=== PATIENT | female | born 1965 | race Caucasian/White ===

== ENCOUNTER → 2016-09-08 | Outpatient (CLI) | payer BC, OTHER ==
[~2016-09-08] MED LIST: ACET1TAB84 PO; ANT25 PO; ASPI81TA21 PO; CHOL1000 PO; CLR10 PO; FAMO20TA11 PO; FLUT0.15 NAE; LEVO175T PO; LEVO200T32 PO; MULT-513 PO; PRLSR20 PO; TRIA37.53 PO; TRIA75TA53 PO
[2016-09-09 06:22] LABS: ESTIMATED AVERAGE GLUCOSE 131 mg/dl; HA1C FLAG Normal (Normal)
== END | disposition home or self-care (01) ==
LOC: C.LABPVFM 07:58
PROVIDERS: ATTEND Nurse Practitioner
DX: R53.83 Other fatigue (principal); M76.60 Achilles tendinitis, unspecified leg; Z13.1 Encounter for screening for diabetes mellitus

== ENCOUNTER → 2016-10-21 | Outpatient (CLI) | payer BC ==
[2016-10-21 13:40] LABS: BLOOD UREA NITROGEN 21 mg/dl (7-18); BUN/CREATININE RATIO 23.1 (10-20); CALCIUM 9.6 mg/dl (8.5-10.1); CARBON DIOXIDE 28 mmol/L (21-32); CHLORIDE 102 mmol/L (98-107); CHOLESTEROL 202 mg/dl (0-200); CREATININE 0.89 mg/dl (0.60-1.20); GLUCOSE 114 mg/dl (70-99); POTASSIUM 3.7 mmol/L (3.5-5.1); SODIUM 138 mmol/L (136-145)
[2016-10-21 13:50] LABS: CHOLESTEROL/HDL RATIO 3.2; HDL CHOLESTEROL 64 mg/dl; LDL CHOLESTEROL CALCULATED 122 mg/dl; THYROID STIMULATING HORMONE 0.657 uIu/ml (0.300-4.500); TRIGLYCERIDES 79 mg/dl (0-150); VERY LOW DENSITY LIPOPROT CALC 16 mg/dl
== END | disposition home or self-care (01) ==
LOC: C.LABPVFM 08:06
PROVIDERS: ATTEND Nurse Practitioner
DX: E78.5 Hyperlipidemia, unspecified (principal); I10 Essential (primary) hypertension; E03.9 Hypothyroidism, unspecified

== ENCOUNTER 2017-01-21 15:25 | Inpatient (IN) | payer BC ==
[~2017-01-21] VITALS: Ht 167.6 cm; Wt 124.2 kg
[~2017-01-21 15:25] MED LIST changes: -ACET1TAB84 PO; -ANT25 PO; -CHOL1000 PO; -CLR10 PO; -FAMO20TA11 PO; -FLUT0.15 NAE; -LEVO175T PO; -MULT-513 PO; -PRLSR20 PO; -TRIA37.53 PO
[2017-01-21] MEDS ORDERED: SODIUM CHLORIDE 0.9% 1000ML 2,000 ML IV STA (15:35)
[2017-01-21] MEDS ORDERED: MECLIZINE HCL 25 MG TAB PO STA (15:35)
[2017-01-21] MEDS ORDERED: ONDANSETRON INJ 2 MG/ML 2 ML VIAL IV STA (15:35)
[2017-01-21 15:41] LABS: BASO % 0.4 %; BASO ABS # 0.03 K/uL (0-0.2); COMPLETE YES; EOS % 2.7 %; HEMATOCRIT 36.6 % (37-47); IG% 0.1 %; LYMPH % 35.2 %; LYMPH ABS # 2.71 K/uL (1.2-3.4); MEAN CELL VOLUME 85.1 fL (80-100); MEAN CORPUSCULAR HEMOGLOBIN 28.4 pg (25-34); MEAN CORPUSCULAR HGB CONC 33.3 g/dl (32-36); MEAN PLATELET VOLUME 10.5 fL (7.4-10.4); MONO % 9.4 %; NEUT % 52.2 %; PLATELET COUNT 274 K/uL (130-400)
[2017-01-21] MEDS ORDERED: DIAZEPAM INJ 5 MG/ML 2 ML CARP IV ONE ×2 (15:45→18:00)
[2017-01-21 16:12] LABS: CALCIUM 9.2 mg/dl (8.5-10.1); POTASSIUM 2.6 mmol/L (3.5-5.1)
[2017-01-21] MEDS ORDERED: CHOL1000 PO (16:20)
[2017-01-21] MEDS ORDERED: TRIA37.53 PO (16:20)
[2017-01-21] MEDS ORDERED: PRLSR20 PO (16:20)
[2017-01-21] MEDS ORDERED: CLR10 PO (16:20)
[2017-01-21] MEDS ORDERED: FLUT0.15 NAE (16:20)
[2017-01-21] MEDS ORDERED: LEVO175T PO (16:20)
[2017-01-21] MEDS ORDERED: FAMO20TA11 PO (16:20)
[2017-01-21] MEDS ORDERED: MULT-513 PO (16:20)
[2017-01-21] MEDS ORDERED: ACET1TAB84 PO (16:24)
[2017-01-21] MEDS ORDERED: POTASSIUM CHLORIDE 10 MEQ TABCR PO STA (16:30)
[2017-01-21] MEDS ORDERED: POTASSIUM CHLORIDE 10 MEQ / 100ML WTR IV STA ×2 (17:16→18:04)
--- NOTE | 2017-01-21 17:40 | DIAGNOSTIC IMAGING REPORT ---
HEAD CT NONCONTRAST CT DOSE: 724.83 mGy.cm HISTORY: Mental status change dizzy TECHNIQUE: Multiaxial CT images of the head were performed without the use of intravenous contrast. Comparison: None. Findings: The paranasal sinuses and mastoid air cells are clear. The calvarium and skull base are intact. The ventricles and sulci are within normal limits. There is no mass, hematoma, midline shift, or acute infarct. Impression: No acute intracranial abnormality. Electronically signed by: Ramses Koo M.D. 01/21/2017 5:38 PM Dictated Date/Time: 01/21/2017 5:37 PM
--- NOTE | 2017-01-21 18:32 | EMERGENCY ROOM VISIT NOTE ---
History Report prepared by Alli: Chrissy Ruiz Under the Supervision of: Dr. Sohan Noriega D.O. First contact with patient: 15:27 Chief Complaint: GI ASSESSMENT Stated Complaint: ABD PAIN/ DIZZY History of Present Illness The patient is a 51 year old female who presents to the Emergency Room with complaints of constant dizziness beginning 3 hours ago. The patient states that she was at [employer] today and walked a few laps before stopping because she was woozy. She reports that when she got home she suddenly began to feel dizzy and weak. She notes that the room feels like it is spinning even while she is still but the dizziness is significantly worsened when she moves her head. The patient states that she feels like she is going to pass out. She complains of nausea and vomiting. She denies any recent head trauma, headache, ringing in ears, decreased hearing, chest pain, shortness of breath, abdominal pain, urinary symptoms, numbness, new medication. She believes that her vomiting is secondary to the dizziness. Source of History: patient Onset: 3 hours ago Position: other (global) Quality: other (dizziness) Timing: constant Modifying Factors (Worsening): other (moving head) Associated Symptoms: + nausea, + vomiting, + weakness, No headache, No chest pain, No SOB, No abdominal pain, No urinary symptoms, No numbness Note: She denies any ringing in ears, decreased hearing. Review of Systems See HPI for pertinent positives & negatives. A total of 10 systems reviewed and were otherwise negative. Past Medical & Surgical Medical Problems: (1) Hyperlipidemia Nec/Nos (2) Hypertension Nos (3) Pyelonephritis Nos (4) Tietze's Disease Family History Cancer Diabetes mellitus Heart disease Hypertension Kidney stones Social History Smoking Status: Never Smoker Alcohol Use: none Marital Status: Housing Status: lives with significant other Occupation Status: employed Current/Historical Medications Scheduled Cholecalciferol (Vitamin D3), 4 TAB PO DAILY Levothyroxine Sodium (Synthroid), 175 MCG PO DAILY Loratadine (Claritin), 10 MG PO DAILY Multivitamins/Minerals (Mvi With Minerals), 1 TAB PO DAILY Triamterene & Hydrochlorothiaz (Hctz/Triamterene), 1 TAB PO DAILY Scheduled PRN Acetaminophen (Tylenol Arthritis Ext Rel), 1,300 MG PO Q8H PRN for Pain Famotidine (Pepcid), 20 MG PO DAILY PRN for PT Fluticasone Propionate (Nasal) (Flonase Allergy Relief), 1 SPRAY FELIPA BID PRN for Nasal Congestion Omeprazole (Prilosec), 20 MG PO DAILY PRN for acid reflux Allergies Coded Allergies: Ampicillin (Verified Allergy, Severe, ANAPHYLAXIS, 09/02/11) Physical Exam Vital Signs Date Time Temp Pulse Resp B/P (MAP) Pulse Ox O2 Delivery O2 Flow Rate FiO2 01/21/17 17:04 73 16 131/71 97 Room Air 01/21/17 15:35 36.4 84 18 181/80 93 Room Air Physical Exam GENERAL: sitting up in bed, disheveled, alert, well appearing, well nourished, no distress, non-toxic, eyes are closed EYE EXAM: normal conjunctiva, horizontal nystagmus present OROPHARYNX: no exudate, no erythema, lips, buccal mucosa, and tongue normal and mucous membranes are moist NECK: supple, no nuchal rigidity, no adenopathy, non-tender LUNGS: Clear to auscultation. Normal chest wall mechanics HEART: no murmurs, S1 normal and S2 normal ABDOMEN: abdomen soft, non-tender, normo-active bowel sounds, no masses, no rebound or guarding. BACK: Back is symmetrical on inspection and there is no deformity, no midline tenderness, no CVA tenderness. SKIN: no rashes and no bruising UPPER EXTREMITIES: upper extremities are grossly normal. LOWER EXTREMITIES: No pitting edema. NEURO EXAM: Normal sensorium, cranial nerves II-XII intact, normal speech, no weakness of arms, no weakness of legs. No drift. Finger to nose intact. Gross sensation intact. Rapid alternating movements of upper extremities intact. Medical Decision & Procedures ER Provider Diagnostic Interpretation: Radiology results as stated below per my review and the radiologist's interpretation: HEAD CT NONCONTRAST Findings: The paranasal sinuses and mastoid air cells are clear. The calvarium and skull base are intact. The ventricles and sulci are within normal limits. There is no mass, hematoma, midline shift, or acute infarct. Impression: No acute intracranial abnormality. Electronically signed by: Ramses Koo M.D. 01/21/2017 5:38 PM Dictated Date/Time: 01/21/2017 5:37 PM Laboratory Results 01/21/17 15:00 Red Blood Count 4.30, Mean Corpuscular Volume 85.1, Mean Corpuscular Hemoglobin 28.4, Mean Corpuscular Hemoglobin Concent 33.3, Mean Platelet Volume 10.5, Neutrophils (%) (Auto) 52.2, Lymphocytes (%) (Auto) 35.2, Monocytes (%) (Auto) 9.4, Eosinophils (%) (Auto) 2.7, Basophils (%) (Auto) 0.4, Neutrophils # (Auto) 4.02, Lymphocytes # (Auto) 2.71, Monocytes # (Auto) 0.72, Eosinophils # (Auto) 0.21, Basophils # (Auto) 0.03 01/21/17 15:00 Test 01/21/17 15:00 White Blood Count 7.70 K/uL (4.8-10.8) Red Blood Count 4.30 M/uL (4.2-5.4) Hemoglobin 12.2 g/dL (12.0-16.0) Hematocrit 36.6 % (37-47) Mean Corpuscular Volume 85.1 fL (80-100) Mean Corpuscular Hemoglobin 28.4 pg (25-34) Mean Corpuscular Hemoglobin Concent 33.3 g/dl (32-36) Platelet Count 274 K/uL (130-400) Mean Platelet Volume 10.5 fL (7.4-10.4) Neutrophils (%) (Auto) 52.2 % Lymphocytes (%) (Auto) 35.2 % Monocytes (%) (Auto) 9.4 % Eosinophils (%) (Auto) 2.7 % Basophils (%) (Auto) 0.4 % Neutrophils # (Auto) 4.02 K/uL (1.4-6.5) Lymphocytes # (Auto) 2.71 K/uL (1.2-3.4) Monocytes # (Auto) 0.72 K/uL (0.11-0.59) Eosinophils # (Auto) 0.21 K/uL (0-0.5) Basophils # (Auto) 0.03 K/uL (0-0.2) RDW Standard Deviation 45.9 fL (36.4-46.3) RDW Coefficient of Variation 14.9 % (11.5-14.5) Immature Granulocyte % (Auto) 0.1 % Immature Granulocyte # (Auto) 0.01 K/uL (0.00-0.02) Anion Gap 13.0 mmol/L (3-11) Est Creatinine Clear Calc Drug Dose 88.9 ml/min Estimated GFR () 75.0 Estimated GFR (Non- 64.7 BUN/Creatinine Ratio 17.0 (10-20) Calcium Level 9.2 mg/dl (8.5-10.1) Total Bilirubin 0.6 mg/dl (0.2-1) Direct Bilirubin 0.2 mg/dl (0-0.2) Aspartate Amino Transf (AST/SGOT) 43 U/L (15-37) Alanine Aminotransferase (ALT/SGPT) 51 U/L (12-78) Alkaline Phosphatase 70 U/L (45-117) Total Protein 7.7 gm/dl (6.4-8.2) Albumin 3.9 gm/dl (3.4-5.0) Lipase 134 U/L (73-393) Laboratory results per my review. Medications Administered Medications (Trade) Dose Ordered Sig/Kit Route Start Time Stop Time Status Last Admin Dose Admin Sodium Chloride 2,000 ml @ 999 mls/hr Q2H1M STAT IV 01/21/17 15:35 01/21/17 17:35 DC 01/21/17 15:53 999 MLS/HR Diazepam (Valium Inj) 2.5 mg NOW ONCE IV 01/21/17 15:45 01/21/17 15:46 DC 01/21/17 15:53 2.5 MG Meclizine HCl (Antivert Tab) 25 mg NOW STAT PO 01/21/17 15:35 01/21/17 15:37 DC 01/21/17 15:54 25 MG Ondansetron HCl (Zofran Inj) 4 mg NOW STAT IV 01/21/17 15:35 01/21/17 15:37 DC 01/21/17 15:54 4 MG Potassium Chloride (Kcl 10 Meq / Wtr) 10 meq NOW STAT IV 01/21/17 17:16 01/21/17 17:17 DC 01/21/17 17:39 10 MEQ Diazepam (Valium Inj) 2.5 mg NOW ONCE IV 01/21/17 18:00 01/21/17 18:01 DC 01/21/17 18:07 2.5 MG ED Course ED COURSE: Vital signs were reviewed and showed hypertension The patients medical record was reviewed The above diagnostic studies were performed and reviewed. ED treatments and interventions as stated above. 1527: The patient was evaluated in room C10. A complete history and physical examination was performed. 1535: Zofran Inj 4mg IV, Antivert Tab 25mg PO, Sodium Chloride 2000 ml @ 999 mls /hr IV. 1545: Valium Inj 2.5mg IV. 1605: I reevaluated the patient. She is sleepy and was just medicated. She does not think her dizziness has gotten any better. 1630: Potassium Chloride 40meq PO. 1716: Potassium Chloride 10meq PO. 1800: Valium Inj 2.5mg IV. 1804: Potassium Chloride 10meq IV. 1812: I reviewed the patient's case with Dr. De La Garza. She will evaluate the patient for further management. 1827: Upon reevaluation, the patient is doing well.I discussed my findings with the patient and she understands and agrees with the treatment plan. Based on the patients age, coexisting illnesses, exam and lab findings the decision to treat as an inpatient was made. The patient remained stable while under my care. The patient will be evaluated for further management. Medical Decision Differential diagnosis includes etiologies such as benign positional vertigo, dehydration, hypovolemia, anemia, tumor, infection, hypoglycemia, electrolyte abnormalities, cardiac sources, intracerebral event, toxicologic, neurologic, as well as others were entertained. Medication Reconciliation: I attest that I have personally reviewed the patient' s current medication list. Blood pressure screening: Patient was found to have an elevated blood pressure and was referred to their primary doctor for recheck and further treatment. Patient is a 51-year-old female who presents the ER for sudden onset of vertiginous symptoms. Associated with this is nausea and vomiting. She has no chest pain or shortness breath. No weakness or numbness in arms or legs. She is completely neurologically intact. She did have nystagmus on exam initially. CT head was negative. Patient was given 2 doses of Valium and Antivert. She had improvement but still unable to get up without vomiting. She did vomit on the way back from CAT scan. Labs are remarkable for a potassium of 2.6 which I favor is secondary to her vomiting. She was given IV potassium 10 mg 2. I discussed her case with internal medicine as she was unable to get up and ambulate for observation. I do feel this is most consistent with peripheral vertigo. Consults Time Called: 1809 Consulting Physician: Dr. De La Garza - [facility] [place] Returned Call: 1811 I reviewed the patient's case with Dr. De La Garza. She will evaluate the patient for further management. Impression Primary Impression: Vertigo Additional Impression: Hypokalemia Scribe Attestation The scribe's documentation has been prepared under my direction and personally reviewed by me in its entirety. I confirm that the note above accurately reflects all work, treatment, procedures, and medical decision making performed by me. Departure Information Dispostion Being Evaluated By Hospitalist Referrals Tamiko Duarte, Shari.R.N.P (PCP) Patient Instructions My [facility] Problem Qualifiers
[2017-01-21] MEDS ORDERED: MECLIZINE HCL 12.5 MG TAB PO PRN (19:15)
[2017-01-21] MEDS ORDERED: FAMOTIDINE 20 MG TAB PO PRN (19:15)
[2017-01-21] MEDS ORDERED: PANTOprazole SOD 40 MG TAB PO PRN (19:15)
[2017-01-21] MEDS ORDERED: ONDANSETRON INJ 2 MG/ML 2 ML VIAL IV PRN (19:15)
[2017-01-21] MEDS ORDERED: ACETAMINOPHEN 325 MG TAB PO PRN (19:15)
[2017-01-21] MEDS ORDERED: FLUTICASONE PROPIONATE NA SPR 16 GM BTL NAE PRN (19:15)
[2017-01-21] MEDS ORDERED: ACETAMINOPHEN 500 MG TAB PO PRN (19:15)
[2017-01-21] MEDS ORDERED: MAGNESIUM HYDROXIDE SUSP 30 ML UDC PO PRN (19:15)
--- NOTE | 2017-01-21 19:18 | History and Physical ---
History & Physical Date & Time of Service: Jan 21, 2017 at 19:10 Chief Complaint: Abd Pain/ Dizzy Primary Care Physician: Tamiko Duarte C.R.N.P History of Present Illness Source: patient 51 y/o F c/o dizziness. Pt states that she was at [employer] today when this started. She had felt fine most of the morning, although at one point she noted feeling a bit dizzy when she was sitting in the bleachers. She went back out to walk a few more laps and had sudden onset of room spinning sensation that would not resolve. This happened around 12:30p. She states she was nauseated and had 6-7 episodes of emesis [employer]. ED physician states that pt has had emesis with any attempts at movement and with PO K. Also reports that pt had nystagmus on arrival, but this has resolved. Pt states she is feeling a bit improved now s/p valium and antivert, but still with room spinning with any movement. She did not pass out "but I thought I was going to". No prior hx of vertigo. She states that she also participated in the [employer] over the weekend and that she was outside a lot with these activities. Pt denies fever, SOB, chest pain, abd pain, c/d, LE pain or swelling. Past Medical/Surgical History HTN Hypothyroid Family History Family history was reviewed; no changes noted. Father with hx of vertigo Social History Smoking Status: Never Smoker Alcohol Use: none Drug Use: none Marital Status: Housing status: lives with family Occupational Status: employed Immunizations History of Influenza Vaccine: Yes Influenza Vaccine Date: Jun 02, 2010 History of Tetanus Vaccine?: No History of Pneumococcal: No History of Hepatitis B Vaccine: Yes Multi-Drug Resistant Organisms History of MDRO: No Allergies Coded Allergies: Ampicillin (Verified Allergy, Severe, ANAPHYLAXIS, 09/02/11) Home Medications Scheduled Cholecalciferol (Vitamin D3), 4 TAB PO DAILY Levothyroxine Sodium (Synthroid), 175 MCG PO DAILY Loratadine (Claritin), 10 MG PO DAILY Multivitamins/Minerals (Mvi With Minerals), 1 TAB PO DAILY Triamterene & Hydrochlorothiaz (Hctz/Triamterene), 1 TAB PO DAILY Scheduled PRN Acetaminophen (Tylenol Arthritis Ext Rel), 1,300 MG PO Q8H PRN for Pain Famotidine (Pepcid), 20 MG PO DAILY PRN for PT Fluticasone Propionate (Nasal) (Flonase Allergy Relief), 1 SPRAY FELIPA BID PRN for Nasal Congestion Omeprazole (Prilosec), 20 MG PO DAILY PRN for acid reflux Review of Systems Reviewed and negative Physical Exam Vital Signs Date Time Temp Pulse Resp B/P (MAP) Pulse Ox O2 Delivery O2 Flow Rate FiO2 01/21/17 18:35 68 18 130/74 92 Room Air 01/21/17 17:04 73 16 131/71 97 Room Air 01/21/17 15:35 36.4 84 18 181/80 93 Room Air General Appearance: WD/WN, no apparent distress Head: normocephalic, atraumatic Eyes: normal inspection, sclerae normal ENT: hearing grossly normal Neck: supple Respiratory/Chest: normal breath sounds, no respiratory distress Cardiovascular: regular rate, rhythm, no edema Abdomen/GI: non tender, soft Extremities/Musculoskelatal: no calf tenderness, no pedal edema Neurologic/Psych: alert, normal mood/affect, oriented x 3 Skin: normal color, warm/dry Diagnostics Laboratory Results Results Past 24 Hours Test 01/21/17 15:00 Range/Units White Blood Count 7.70 4.8-10.8 K/uL Red Blood Count 4.30 4.2-5.4 M/uL Hemoglobin 12.2 12.0-16.0 g/dL Hematocrit 36.6 37-47 % Mean Corpuscular Volume 85.1 80-100 fL Mean Corpuscular Hemoglobin 28.4 25-34 pg Mean Corpuscular Hemoglobin Concent 33.3 32-36 g/dl Platelet Count 274 130-400 K/uL Mean Platelet Volume 10.5 7.4-10.4 fL Neutrophils (%) (Auto) 52.2 % Lymphocytes (%) (Auto) 35.2 % Monocytes (%) (Auto) 9.4 % Eosinophils (%) (Auto) 2.7 % Basophils (%) (Auto) 0.4 % Neutrophils # (Auto) 4.02 1.4-6.5 K/uL Lymphocytes # (Auto) 2.71 1.2-3.4 K/uL Monocytes # (Auto) 0.72 0.11-0.59 K/uL Eosinophils # (Auto) 0.21 0-0.5 K/uL Basophils # (Auto) 0.03 0-0.2 K/uL RDW Standard Deviation 45.9 36.4-46.3 fL RDW Coefficient of Variation 14.9 11.5-14.5 % Immature Granulocyte % (Auto) 0.1 % Immature Granulocyte # (Auto) 0.01 0.00-0.02 K/uL Sodium Level 142 136-145 mmol/L Potassium Level 2.6 3.5-5.1 mmol/L Chloride Level 104 98-107 mmol/L Carbon Dioxide Level 25 21-32 mmol/L Anion Gap 13.0 3-11 mmol/L Blood Urea Nitrogen 17 7-18 mg/dl Creatinine 1.00 0.60-1.20 mg/dl Est Creatinine Clear Calc Drug Dose 88.9 ml/min Estimated GFR () 75.0 Estimated GFR (Non- 64.7 BUN/Creatinine Ratio 17.0 10-20 Random Glucose 141 70-99 mg/dl Calcium Level 9.2 8.5-10.1 mg/dl Total Bilirubin 0.6 0.2-1 mg/dl Direct Bilirubin 0.2 0-0.2 mg/dl Aspartate Amino Transf (AST/SGOT) 43 15-37 U/L Alanine Aminotransferase (ALT/SGPT) 51 12-78 U/L Alkaline Phosphatase 70 45-117 U/L Total Protein 7.7 6.4-8.2 gm/dl Albumin 3.9 3.4-5.0 gm/dl Lipase 134 73-393 U/L Diagnostic Radiology CT head neg for acute Impression Assessment and Plan 51 y/o F who was admitted on 01/21 with intractable vertigo Vertigo: no prior hx, likely related to hypoK TSH pending CT head neg for acute Improved with valium and antivert PT pending if ongoing sx, should also instruct pt on home maneuvers in case of future events Can hold off on cardiac work-up since this is likely vertigo given improvement with meds Hypothyroid: recent adjustments to synthroid TSH pending HTN: labile on arrival in the setting of vertigo, improved with improving sx Continue home meds Clears, ADAT Level of Care Telemetry VTE Prophylaxis VTE Risk Assessment Done? Y/N: Yes Risk Level: Low
[2017-01-21] MEDS: SODIUM CHLORIDE 0.9% 1000ML 1,000 ML IV SCH (20:29)
[2017-01-21 21:04] VITALS: BP 164/80; PULSE 69; TEMP 36.8; O2SAT 92; Ht 167.6 cm; Wt 124.2 kg
[2017-01-22 00:03] VITALS: BP 120/70; PULSE 71; TEMP 36.6; O2SAT 96
[2017-01-22 04:00] VITALS: BP 146/79; PULSE 67; TEMP 36.8; O2SAT 94
[2017-01-22] MEDS ORDERED: LEVOTHYROXINE 175 MCG TAB PO SCH (06:30)
[2017-01-22 06:40] LABS: BUN/CREATININE RATIO 13.6 (10-20); CALCIUM 8.5 mg/dl (8.5-10.1); CREATININE 0.77 mg/dl (0.60-1.20); POTASSIUM 3.2 mmol/L (3.5-5.1)
[2017-01-22 06:43] LABS: THYROID STIMULATING HORMONE 0.516 uIu/ml (0.300-4.500)
[2017-01-22 07:09] VITALS: BP 118/75; PULSE 56; TEMP 36.8; O2SAT 95
[2017-01-22] MEDS ORDERED: POTASSIUM CHLORIDE 10 MEQ TABCR PO ONE ×2 (07:45→14:15)
[2017-01-22] MEDS: SODIUM CHLORIDE 0.9% 1000ML 1,000 ML IV SCH (08:22)
[2017-01-22] MEDS ORDERED: CHOLECALCIFEROL 1000 INTER.UNIT TAB PO SCH (09:00)
[2017-01-22] MEDS ORDERED: TRIAMTERENE/HCTZ 37.5/25MG TAB PO SCH (09:00)
[2017-01-22] MEDS ORDERED: LORATADINE 10 MG TAB PO SCH (09:00)
[2017-01-22] MEDS ORDERED: CEROVITE ADV FORMULA TAB PO SCH (09:00)
[2017-01-22 11:49] VITALS: BP 127/73; PULSE 54; TEMP 36.8; O2SAT 95
--- NOTE | 2017-01-22 11:51 | DIAGNOSTIC IMAGING REPORT ---
CHEST ONE VIEW PORTABLE CLINICAL HISTORY: Shortness of breath and chest pain. COMPARISON STUDY: Chest radiograph September 29, [address] September 30, 2010. FINDINGS: Lung volumes are diminished. There is no pneumothorax or pleural effusion. Mild cardiomegaly is unchanged. There is no evidence of pulmonary edema. There is right paratracheal fullness which could be related to patient rotation. Hazy left basilar opacity is present. IMPRESSION: 1. Hazy left basilar opacity. Atelectasis or artifact is favored although consolidation could appear similar. 2. Right paratracheal fullness which is likely related to patient rotation. Follow-up nonemergent PA and lateral chest radiographs are recommended to exclude the less likely possibility of adenopathy/mass. Electronically signed by: Eusebio Aguilar M.D. 01/22/2017 11:49 AM Dictated Date/Time: 01/22/2017 11:47 AM
[2017-01-22] MEDS ORDERED: ANT25 PO (13:38)
--- NOTE | 2017-01-22 13:43 | Discharge Instructions ---
Discharge Instructions Date of Service Jan 22, 2017. Admission Reason for Admission: Vertigo Discharge Discharge Diagnosis / Problem: BPPV/ Hypokalemia Discharge Goals Goal(s): Improve disease control, Diagnostic testing Activity Recommendations Activity Limitations: per Instructions/Follow-up section . Instructions / Follow-Up Instructions / Follow-Up You were admitted to the hospital for your dizziness/ vertigo. We had treated you in house with Antivert which does help with dizziness in the short term. Based on the results of your tests the dizziness was most likely caused by both BPPV or benign paroxysmal positional vertigo and low potassium. A prescription for Antivert will be sent to your pharmacy and we recommend holding your blood pressure medication for a few days and recheck your blood test near the end of the week. If it is back to normal it can be up to your PCP to continue the medication. We wish you well Kendall Damon Current Hospital Diet Patient's current hospital diet: Low Fiber Diet Discharge Diet Recommended Diet: Regular Diet Pending Studies Studies pending at discharge: no Medical Emergencies . Who to Call and When: Medical Emergencies: If at any time you feel your situation is an emergency, please call 911 immediately. . Non-Emergent Contact Non-Emergency issues call your: Primary Care Provider . . "Provider Documentation" section prepared by Jeanne Damon. . VTE Core Measure Inpt VTE Proph given/why not?: SCD's
[2017-01-22 13:52] LABS: BUN/CREATININE RATIO 11.5 (10-20); CALCIUM 8.9 mg/dl (8.5-10.1); CREATININE 0.93 mg/dl (0.60-1.20); POTASSIUM 3.1 mmol/L (3.5-5.1)
[2017-01-22 14:33] LABS: BASO % 0.4 %; BASO ABS # 0.03 K/uL (0-0.2); COMPLETE YES; EOS % 2.6 %; HEMATOCRIT 35.1 % (37-47); IG% 0.1 %; LYMPH % 35.7 %; MEAN CELL VOLUME 87.3 fL (80-100); MEAN CORPUSCULAR HEMOGLOBIN 28.4 pg (25-34); MEAN CORPUSCULAR HGB CONC 32.5 g/dl (32-36); MEAN PLATELET VOLUME 10.2 fL (7.4-10.4); MONO % 8.3 %; NEUT % 52.9 %; PLATELET COUNT 255 K/uL (130-400); RED BLOOD COUNT 4.02 M/uL (4.2-5.4); WHITE BLOOD COUNT 7.56 K/uL (4.8-10.8)
--- NOTE | 2017-01-22 15:04 | Discharge Summary ---
Discharge Summary Date of Service Jan 22, 2017. (Jeanne Damon MD) Discharge Summary Admission Date: Jan 21, 2017 at 19:10 Discharge Date: Jan 22, 2017 Discharge Disposition: Home Principal Diagnosis: BPPV/ Hypokalemia Immunizations: Have You Had Influenza Vaccine: Yes Influenza Vaccine Date: Jun 02, 2010 History of Tetanus Vaccine?: No History of Pneumococcal: No History of Hepatitis B Vaccine: Yes (Jeanne Damon MD) Medication Reconciliation New Medications: Meclizine HCl (Meclizine HCl) 25 Mg Tab 12.5 MG PO Q6H PRN for vertigo for 7 Days, #14 TAB Continued Medications: Acetaminophen (Tylenol Arthritis Ext Rel) 650 Mg Cplt 1300 MG PO Q8H PRN for Pain, CAP Cholecalciferol (Vitamin D3) 1,000 Unit Tab 4 TAB PO DAILY for 90 Days, #360 TAB 3 Refills Famotidine (Pepcid) 20 Mg Tab 20 MG PO DAILY PRN for PT, TAB Fluticasone Propionate (Nasal) (Flonase Allergy Relief) 50 Mcg/Act Spr 1 SPRAY FELIPA BID PRN for Nasal Congestion Levothyroxine Sodium (Synthroid) 175 Mcg Tab 175 MCG PO DAILY, TAB Loratadine (Claritin) 10 Mg Tab 10 MG PO DAILY, TAB Multivitamins/Minerals (Mvi With Minerals) Tab 1 TAB PO DAILY, TAB Omeprazole (Prilosec) 20 Mg Capcr 20 MG PO DAILY PRN for acid reflux, CAP Discontinued Medications: Triamterene & Hydrochlorothiaz (Hctz/Triamterene) 1 Tab Tab 1 TAB PO DAILY, #90 Discharge Exam Patient has had significant improvement in her symptoms overnight. We did discuss her maxide and she states that she has been on this medication for years. She had potassium pills at home that she takes PRN for muscle cramps. We did discuss discharge and education given to patient and . Both reflected understanding and agreeable to d/c Review of Systems: Constitutional: No fever Eyes: No worsening of vision, No diplopia ENT: No hearing loss, No tinnitus Respiratory: No cough, No sputum, No wheezing, No shortness of breath, No dyspnea on exertion, No dyspnea at rest Cardiovascular: No chest pain Abdomen: No pain, No nausea, No vomiting, No diarrhea, No constipation Musculoskeletal: No joint pain, No muscle pain Genitourinary - Female: No dysuria Neurologic: + vertigo, + balance problems, No weakness, No numbness/tingling Psychiatric: No depression symptoms Endocrine: No fatigue Hematologic / Lymphatic: No abnormal bleeding/bruising Integumentary: No rash Physical Exam: General Appearance: no apparent distress Eyes: normal inspection ENT: normal ENT inspection Neck: supple Respiratory/Chest: normal breath sounds, no respiratory distress, no accessory muscle use Cardiovascular: regular rate, rhythm, no murmur Abdomen / GI: normal bowel sounds, non tender, soft Extremities: normal inspection, no calf tenderness, no pedal edema Neurologic/Psychiatric: alert, normal mood/affect, oriented x 3, + pertinent finding (nystagmus minimal ) Skin: normal color, warm/dry, no rash Lymphatic: no adenopathy (Jeanne Damon MD) vertigo mostly resolved Review of Systems: Constitutional: No fever Respiratory: No shortness of breath Cardiovascular: No chest pain Physical Exam: General Appearance: no apparent distress Respiratory/Chest: lungs clear, no respiratory distress Cardiovascular: regular rate, rhythm Neurologic/Psychiatric: alert, oriented x 3 Skin: warm/dry (Altagracia Brower M.D.) Hospital Course This is a 51 yo f that presented to the hospital with sever N&V associated with vertigo and hypokalemia. Based on the patient's history this is most likely a BPPV picture however the hypokalemia could have attributed to this vertigo. She was repleted PRN and plan is for recheck in the outpt setting. Her Maxide was held until BMP recheck. She was also found to have very faint crackles and costochondral chest tenderness on day of d/c so the patient had a CXR. As she did not have a left shift and WBC was WNL she was discharged with an incentive spirometer as the slight haziness to the left base is most likely atelectasis. 1. Recheck BMP in 2-4 days 2. Follow up with PCP to discuss hypokalemia and continuation of Maxide 3. Antivert and rx to be off work tomorrow 4. Discussed use of incentive spirometer in outpt setting Total Time Spent: Less than 30 minutes This includes examination of the patient, discharge planning, medication reconciliation, and communication with other providers. (Jeanne Damon MD) I have reviewed the medical record and performed a history and physical examination of this patient today. I have discussed the case with Dr. Damon. The above note reflects my findings, conclusions, and recommendations. Total Time Spent: Greater than 30 minutes (35) (Altagracia Brower M.D.) Discharge Instructions Please refer to the electronic Patient Visit Report (Discharge Instructions) for additional information. (Jeanne Damon MD) Additional Copies To Tamiko Duarte C.R.N.P
--- NOTE | 2017-01-22 15:42 | Medical Student: [facility] ---
Med Student Progress Note Date of Service Jan 22, 2017. Subjective Pt evaluation today including: conversation w/ patient, physical exam, chart review, lab review, review of studies Voiding: no voiding problems, no incontinence 51 year old female with a past history of HTN and hypothyroidism presented to the ED on 01/21 with a chief complaint of dizziness with vomiting. Overall she feels a lot better today but still feels that the room is spinning. She states that room spinning sensation worsens when she moves her head in a particular direction. She has photophobia yesterday but states that it has since resolved. She has some residual headache over her forehead area but otherwise her headache has resolved. She does complain of new onset chest tenderness/ tightness in the sternal area that started this morning. She also has been having some back pain and cramping in her right thigh. She denies any fever, chills, ringing in her ear, or vision changes. Today she has been able to use the restroom and walk around with assistance. Review of Systems Constitutional: No fever, No chills Eyes: No worsening of vision, No eye pain, No diplopia ENT: No hearing loss, No tinnitus Respiratory: No shortness of breath Cardiac: No chest pain Abdomen: No pain, No diarrhea, No constipation Neurologic: + weakness, + vertigo Objective Vital Signs Date Time Temp Pulse Resp B/P (MAP) Pulse Ox O2 Delivery O2 Flow Rate FiO2 01/22/17 12:00 Room Air 01/22/17 11:49 36.8 54 16 127/73 (91) 95 Room Air 01/22/17 08:00 Room Air 01/22/17 07:09 36.8 56 20 118/75 (89) 95 Room Air Physical Exam General Appearance: WD/WN, no apparent distress Eyes: bilateral eyes PERRL Neck: no adenopathy, no JVD Respiratory/Chest: lungs clear, normal breath sounds, + pertinent finding ( Chest tenderness in the sternal area) Cardiovascular: regular rate, rhythm, no gallop, no JVD, no murmur Abdomen: normal bowel sounds, non tender, soft, no organomegaly Extremities: no pedal edema Neurologic/Psychiatric: alert, oriented x 3 Skin: normal color Laboratory Results Pertinent findings: Potassium: 3.2 (L) AST: 43 (H) Last 24 Hours Test 01/22/17 05:15 01/22/17 13:18 01/22/17 13:58 Sodium Level 145 mmol/L 143 mmol/L Potassium Level 3.2 mmol/L 3.1 mmol/L Chloride Level 109 mmol/L 107 mmol/L Carbon Dioxide Level 29 mmol/L 29 mmol/L Anion Gap 7.0 mmol/L 7.0 mmol/L Blood Urea Nitrogen 11 mg/dl 11 mg/dl Creatinine 0.77 mg/dl 0.93 mg/dl Random Glucose 94 mg/dl 93 mg/dl Magnesium Level 2.1 mg/dl Thyroid Stimulating Hormone (TSH) 0.516 uIu/ml White Blood Count 7.56 K/uL Red Blood Count 4.02 M/uL Hemoglobin 11.4 g/dL Hematocrit 35.1 % Mean Corpuscular Volume 87.3 fL Mean Corpuscular Hemoglobin 28.4 pg Mean Corpuscular Hemoglobin Concent 32.5 g/dl Platelet Count 255 K/uL Medications Current Inpatient Medications Medications (Trade) Dose Ordered Sig/Kit Route Start Time Stop Time Status Last Admin Dose Admin Sodium Chloride 1,000 ml @ 80 mls/hr [id number] IV 01/21/17 20:00 02/20/17 19:59 01/22/17 08:22 80 MLS/HR Acetaminophen (Tylenol Tab) 650 mg Q4H PRN PO 01/21/17 19:15 02/20/17 19:14 01/22/17 07:43 650 MG Magnesium Hydroxide (Milk Of Magnesia Susp) 30 ml Q12H PRN PO 01/21/17 19:15 02/20/17 19:14 Ondansetron HCl (Zofran Inj) 4 mg Q6H PRN IV 01/21/17 19:15 02/20/17 19:14 Meclizine HCl (Antivert Tab) 12.5 mg Q6H PRN PO 01/21/17 19:15 02/20/17 19:14 Cholecalciferol (Vitamin D Tab) 4,000 inter.unit DAILY PO 01/22/17 09:00 02/21/17 08:59 01/22/17 08:24 4,000 INTER.UNIT Famotidine (Pepcid Tab) 20 mg DAILY PRN PO 01/21/17 19:15 02/20/17 19:14 Fluticasone Propionate (Flonase Nasal [place]) 1 sprays BID PRN FELIPA 01/21/17 19:15 02/20/17 19:14 Levothyroxine Sodium (Synthroid Tab) 175 mcg DAILYBB PO 01/22/17 06:30 02/21/17 06:29 01/22/17 06:06 175 MCG Loratadine (Claritin Tab) 10 mg DAILY PO 01/22/17 09:00 02/21/17 08:59 01/22/17 08:24 10 MG Multivitamins/ Minerals (Multivitamin W/ Minerals Tab) 1 tab DAILY PO 01/22/17 09:00 02/21/17 08:59 01/22/17 08:24 1 TAB Triamterene/HCTZ (Maxzide 37.5/25 Tab) 1 tab DAILY PO 01/22/17 09:00 02/21/17 08:59 Future Hold 01/22/17 08:23 1 TAB Acetaminophen (Tylenol Tab) 1,000 mg Q6H PRN PO 01/21/17 19:15 02/20/17 19:14 Pantoprazole Sodium (Protonix Tab) 40 mg DAILY PRN PO 01/21/17 19:15 02/20/17 19:14 Assessment and Plan Problems Vertigo Assessment and Plan: 51 year old female with a past history of HTN and hypothyroidism presented to the ED on 01/21 with a chief complaint of dizziness and vomiting consistent with Peripheral Vertigo. Vertigo: Vertigo symptoms have progressively resolved since she was started on Valium and Antivert. She should continue to take these medications and f/u with PCP after discharge. Low Potassium: likely from vomiting. She is taking Potassium supplement. Discharge planning: home, other (Follow up with PCP)
== END 2017-01-22 16:10 | disposition home or self-care (01) | DRG 149 ==
LOC: EDBD 15:25 → C.EDA 15:26 → C.MED 19:10 → ENRESERV 19:40
PROVIDERS: ADMIT Family Medicine; ATTEND Family Medicine
DX: H81.10 Benign paroxysmal vertigo, unspecified ear (principal); E87.6 Hypokalemia; E78.5 Hyperlipidemia, unspecified; I10 Essential (primary) hypertension; E03.9 Hypothyroidism, unspecified

== ENCOUNTER → 2017-01-26 | Outpatient (CLI) | payer BC ==
[~2017-01-26] MED LIST changes: +ACET1TAB84 PO; +ANT25 PO; -ASPI81TA21 PO; +CHOL1000 PO; +CLR10 PO; +FAMO20TA11 PO; +FLUT0.15 NAE; +LEVO175T PO; -LEVO200T32 PO; +MULT-513 PO; +PRLSR20 PO; -TRIA75TA53 PO
[2017-01-26 13:00] LABS: POTASSIUM 3.9 mmol/L (3.5-5.1)
== END | disposition home or self-care (01) ==
LOC: C.LABPVFM 07:34
PROVIDERS: ATTEND Nurse Practitioner
DX: E87.6 Hypokalemia (principal)

== ENCOUNTER → 2017-03-03 | Outpatient (CLI) | payer BC | END | disposition home or self-care (01) | LOC: C.LABPVFM 10:33 | PROVIDERS: ATTEND Nurse Practitioner | DX: E87.6 Hypokalemia (principal); E55.9 Vitamin D deficiency, unspecified ==

== ENCOUNTER → 2017-04-28 | Outpatient (CLI) | payer BC ==
[2017-04-28 13:28] LABS: BLOOD UREA NITROGEN 14 mg/dl (7-18); BUN/CREATININE RATIO 17.7 (10-20); CALCIUM 9.4 mg/dl (8.5-10.1); CARBON DIOXIDE 29 mmol/L (21-32); CHLORIDE 106 mmol/L (98-107); CREATININE 0.81 mg/dl (0.60-1.20); GLUCOSE 97 mg/dl (70-99); SODIUM 141 mmol/L (136-145)
[2017-04-28 13:38] LABS: CHOLESTEROL 201 mg/dl (0-200); CHOLESTEROL/HDL RATIO 2.8; HDL CHOLESTEROL 71 mg/dl; LDL CHOLESTEROL CALCULATED 112 mg/dl; THYROID STIMULATING HORMONE 0.881 uIu/ml (0.300-4.500); TRIGLYCERIDES 90 mg/dl (0-150); VERY LOW DENSITY LIPOPROT CALC 18 mg/dl
== END | disposition home or self-care (01) ==
LOC: C.LABPVFM 08:09
PROVIDERS: ATTEND Nurse Practitioner
DX: E78.5 Hyperlipidemia, unspecified (principal); E03.9 Hypothyroidism, unspecified; I10 Essential (primary) hypertension; E55.9 Vitamin D deficiency, unspecified

== ENCOUNTER → 2017-10-24 | Outpatient (CLI) | payer BC ==
--- NOTE | 2017-10-25 07:50 | MAMMOGRAPHY REPORT ---
BILATERAL DIGITAL SCREENING MAMMOGRAM TOMOSYNTHESIS WITH CAD: 10/24/2017 CLINICAL HISTORY: Routine screening. TECHNIQUE: Breast tomosynthesis in addition to standard 2D mammography was performed. Current study was also evaluated with a Computer Aided Detection (CAD) system. COMPARISON: Comparison is made to exams dated: 08/11/2016 mammogram, 07/05/2015 mammogram, 07/01/2014 m ammogram, 06/30/2013 mammogram, 06/17/2012 mammogram, and 06/09/2011 mammogram - [facility]. BREAST COMPOSITION: There are scattered areas of fibroglandular density in both breasts. FINDINGS: No suspicious masses, calcifications, or areas of architectural distortion are noted in ei ther breast. There has been no significant interval change compared to prior exams. Scattered bilater al benign-appearing calcifications are not significantly changed. IMPRESSION: ACR BI-RADS CATEGORY 2: BENIGN There is no mammographic evidence of malignancy. A 1 year screening mammogram is recommended. The pa tient will receive written notification of the results. Approximately 10% of breast cancers are not detected with mammography. A negative mammographic report should not delay biopsy if a clinically suggestive mass is present. Susan House M.D. /:10/24/2017 10:08:32 Hot Die Picker: Sindy CHAIDEZ(R)([id number]), [facility] letter sent: Normal 1/2 BI-RADS Code: ACR BI-RADS Category 2: Benign
== END | disposition home or self-care (01) ==
LOC: C.MAMM 08:10
PROVIDERS: ATTEND Nurse Practitioner
DX: Z12.31 Encounter for screening mammogram for malignant neoplasm of breast (principal)

== ENCOUNTER → 2017-11-01 | Outpatient (CLI) | payer BC ==
[2017-11-01 14:38] LABS: BLOOD UREA NITROGEN 19 mg/dl (7-18); CALCIUM 9.4 mg/dl (8.5-10.1); CARBON DIOXIDE 29 mmol/L (21-32); CREATININE 0.96 mg/dl (0.60-1.20); GLUCOSE 112 mg/dl (70-99); POTASSIUM 3.6 mmol/L (3.5-5.1); SODIUM 137 mmol/L (136-145)
[2017-11-01 14:48] LABS: CHOLESTEROL 198 mg/dl (0-200); LDL CHOLESTEROL CALCULATED 112 mg/dl
== END | disposition home or self-care (01) ==
LOC: C.LABPVFM 07:40
PROVIDERS: ATTEND Nurse Practitioner
DX: Z13.1 Encounter for screening for diabetes mellitus (principal); R53.83 Other fatigue; R63.5 Abnormal weight gain; I10 Essential (primary) hypertension; E78.5 Hyperlipidemia, unspecified; E55.9 Vitamin D deficiency, unspecified

== ENCOUNTER → 2018-02-18 | Outpatient (CLI) | payer BC | END | disposition home or self-care (01) | LOC: C.LABPVFM 08:01 | PROVIDERS: ATTEND Nurse Practitioner | DX: E03.9 Hypothyroidism, unspecified (principal) ==